=== PATIENT | male | born 1965 | race Caucasian/White ===

== ENCOUNTER 2018-08-13 21:07 | Emergency (ER) | payer OTHER ==
[2018-08-13] MEDS ORDERED: Albuterol/Ipratropium 3.0-0.5 MG/3 ML Neb Soln NEB ONE (21:23)
[2018-08-13] MEDS ORDERED: methylPREDNISolone Sodium Succinate 125 MG/2 ML SDV IM ONE (21:23)
--- NOTE | 2018-08-13 21:37 | EDM.PDOC ---
<Tisha Huff - Last Filed: 08/14/18 10:20> ED HPI GENERAL MEDICAL PROBLEM - General Chief Complaint: Respiratory Problem Stated Complaint: PT HAS DIFFICULTY BREATHING Time Seen by Provider: 08/13/18 21:14 Source of Information: Reports: Patient History Limitations: Reports: No Limitations - History of Present Illness INITIAL COMMENTS - FREE TEXT/NARRATIVE: HISTORY AND PHYSICAL: History of present illness: Patient is a 52-year-old man who presents for shortness of breath that began this morning. When he describes his shortness of breath he states he feels like he cant take a deep breath in. He also reports one emesis episode due to coughing fit but has not vomited since. Reports that nothing makes his shortness of breath better or worse. Reports mild cough with no production. Patient has had asthma since he was [id number] but has not had a rescue inhaler at home for several months since he does not often go in to see his primary care provider. He does not smoke. Patient denies any other symptoms or concerns. Patient denies fever, chest pain, or shortness of breath. Denies headache, neck stiff ness, change in vision, syncope, or near syncope. Denies abdominal pain, diarrhea, constipation, or dysuria. Has not noted any blood in urine or stool. Patient has been eating and drinking appropriately. Review of systems: As per history of present illness and below otherwise all systems reviewed and negative. Past medical history: As per history of present illness and as reviewed below otherwise noncontributory. Surgical history: As per history of present illness and as reviewed below otherwise noncontributory. Social history: See social history for further information Family history: As per history of present illness and as reviewed below otherwise noncontributory. Physical exam: General: Patient is alert, oriented, and in no acute distress. Patient sitting comfortably on exam table. HEENT: Atraumatic, normocephalic, pupils equal and reactive bilaterally, negative for conjunctival pallor or scleral icterus, mucous membranes moist, TMs normal bilaterally, throat clear, neck supple, nontender, trachea midline. No drooling or trismus noted. No meningeal signs. No hot potato voice noted. Lungs: Moderate wheezing throughout bilaterally, chest nontender. Heart: S1S2, regular rate and rhythm without overt murmur Abdomen: Soft, nondistended, nontender. Negative for masses or hepatosplenomegaly. Negative for costovertebral tenderness. Pelvis: Stable nontender. Genitourinary: Deferred. Rectal: Deferred. Skin: Intact, warm, dry. No lesions or rashes noted. Extremities: Atraumatic, negative for cords or calf pain. Neurovascular unremarkable. Neuro: Awake, alert, oriented. Cranial nerves II through XII unremarkable. Cerebellum unremarkable. Motor and sensory unremarkable throughout. Exam nonfocal. Notes: Dr. Soto verbally involved in patient care. Lung sounds clear throughout after DuoNeb. Discussed the importance of following up with his primary care provider. Voices understanding and is agreeable to plan of care. Denies any further questions or concerns at this time. Diagnostics: EKG, troponin, CBC, CMP, UA, CXR Therapeutics: Duo neb Solu-Medrol Levaquin Prescription: Levaquin Albuterol Hfa Albuterol neb Medrol Impression: Left upper lobe pneumonia Plan: 1. Alternate Tylenol and ibuprofen as needed for pain and discomfort. Take medications as prescribed. 2. Follow up with primary care provider as discussed. Return to ER if needed as discussed. Definitive disposition and diagnosis as appropriate pending reevaluation and review of above. - Related Data Allergies Allergy/AdvReac Type Severity Reaction Status Date / Time No Known Allergies Allergy Verified 08/13/18 21:41 Home Meds: Home Meds . [No Known Home Meds] 12/23/14 [History] Past Medical History - Past Surgical History Other Musculoskeletal Surgeries/Procedures:: right elbow surgery and right hand surgery ED ROS GENERAL - Review of Systems Review Of Systems: ROS reveals no pertinent complaints other than HPI. ED EXAM, GENERAL - Physical Exam Exam: See Below (see dictation) Course - Vital Signs Last Recorded V/S: Last Vital Signs Temp 36.2 C 08/13/18 23:25 Pulse 79 08/13/18 23:25 Resp 18 08/13/18 23:25 BP 100/60 08/13/18 23:25 Pulse Ox 97 08/13/18 23:25 - Orders/Labs/Meds Orders: Active Orders 24 hr Category Date Time Status EKG Documentation Completion [RC] STAT Care 08/13/18 21:23 Active RT Aerosol Therapy [RC] ASDIRECTED Care 08/13/18 21:23 Active Labs: Laboratory Tests 08/13/18 08/13/18 08/13/18 Range/Units 21:25 21:41 21:41 WBC 26.76 H (4.0-11.0) K/uL RBC 4.76 (4.50-5.90) M/uL Hgb 14.7 (13.0-17.0) g/dL Hct 43.1 (38.0-50.0) % MCV 90.5 (80.0-98.0) fL MCH 30.9 (27.0-32.0) pg MCHC 34.1 (31.0-37.0) g/dL RDW Std Deviation 45.7 (28.0-62.0) fl RDW Coeff of Jacob 14 (11.0-15.0) % Plt Count 226 (150-400) K/uL MPV 10.30 (7.40-12.00) fL Add Manual Diff YES Neutrophils % (Manual) 75 (48.0-80.0) % Band Neutrophils % 5 % Lymphocytes % (Manual) 14 L (16.0-40.0) % Monocytes % (Manual) 6 (0.0-15.0) % Nucleated RBC % 0.0 /100WBC Absolute Seg Neuts 20.1 H (1.4-5.7) Band Neutrophils # 1.3 Lymphocytes # (Manual) 3.7 H (0.6-2.4) Monocytes # (Manual) 1.6 H (0.0-0.8) Nucleated RBCs # 0 K/uL Sodium 139 (136-148) mmol/L Potassium 4.2 (3.5-5.1) mmol/L Chloride 106 (98-107) mmol/L Carbon Dioxide 25.5 (21.0-32.0) mmol/L BUN 21 H (7.0-18.0) mg/dL Creatinine 1.2 (0.8-1.3) mg/dL Est Cr Clr Drug Dosing 68.09 mL/min Estimated GFR (MDRD) > 60.0 ml/min Glucose 112 H (74-106) mg/dL Calcium 9.0 (8.5-10.1) mg/dL Total Bilirubin 0.7 (0.2-1.0) mg/dL AST 17 (15-37) IU/L ALT 20 (14-63) IU/L Alkaline Phosphatase 88 (46-116) U/L Troponin I < 0.050 (0.000-0.056) ng/mL Total Protein 7.3 (6.4-8.2) g/dL Albumin 3.7 (3.4-5.0) g/dL Globulin 3.6 (2.6-4.0) g/dL Albumin/Globulin Ratio 1.0 (0.9-1.6) Urine Color YELLOW Urine Appearance CLEAR Urine pH 6.0 (5.0-8.0) Ur Specific Everton 1.025 (1.001-1.035) Urine Protein NEGATIVE (NEGATIVE) mg/dL Urine Glucose (UA) NEGATIVE (NEGATIVE) mg/dL Urine Ketones NEGATIVE (NEGATIVE) mg/dL Urine Occult Blood NEGATIVE (NEGATIVE) Urine Nitrite NEGATIVE (NEGATIVE) Urine Bilirubin NEGATIVE (NEGATIVE) Urine Urobilinogen 0.2 (<2.0) EU/dL Ur Leukocyte Esterase NEGATIVE (NEGATIVE) Meds: Medications Discontinued Medications Generic Name Dose Route Start Last Admin Trade Name Freq PRN Reason Stop Dose Admin Albuterol/Ipratropium 3 ml 08/13/18 21:23 08/13/18 21:34 Duoneb 3.0-0.5 Mg/3 Ml NEB 08/13/18 21:24 3 ml ONETIME ONE Administration Amoxicillin/Clavulanate Potassium 1 tab 08/13/18 22:46 08/13/18 22:59 Augmentin 875 Mg/125 Mg PO 08/13/18 22:47 Not Given ONETIME ONE Levofloxacin 750 mg 08/13/18 22:48 08/13/18 23:18 Levaquin PO 08/13/18 22:49 750 mg ONETIME ONE Administration Methylprednisolone Sodium Succinate 125 mg 08/13/18 21:23 08/13/18 21:34 Solu-Medrol IM 08/13/18 21:24 125 mg ONETIME ONE Administration Departure - Departure Time of Disposition: 10:20 Disposition: Home, Self-Care 01 Clinical Impression: Left upper lobe pneumonia Qualifiers: Pneumonia type: due to unspecified organism Qualified Code(s): J18.1 - Lobar pneumonia, unspecified organism Clinical Impression: (Ruled Out): Shortness of breath - Discharge Information Instructions: Community-Acquired Pneumonia, Adult, [id number] Referrals: PCP,None [Primary Care Provider] - Forms: ED Department Discharge Additional Instructions: The following information is given to patients seen in the emergency department who are being discharged to home. This information is to outline your options for follow-up care. We provide all patients seen in our emergency department with a follow-up referral. The need for follow-up, as well as the timing and circumstances, are variable depending upon the specifics of your emergency department visit. If you don't have a primary care physician on staff, we will provide you with a referral. We always advise you to contact your personal physician following an emergency department visit to inform them of the circumstance of the visit and for follow-up with them and/or the need for any referrals to a consulting specialist. The emergency department will also refer you to a specialist when appropriate. This referral assures that you have the opportunity for follow-up care with a specialist. All of these measure are taken in an effort to provide you with optimal care, which includes your follow-up. Under all circumstances we always encourage you to contact your private physician who remains a resource for coordinating your care. When calling for follow-up care, please make the office aware that this follow-up is from your recent emergency room visit. If for any reason you are refused follow-up, please contact the [facility] Emergency Department at and asked to speak to the emergency department charge nurse. [facility] Primary Care [address] [place] [id number] [place] [address] 1. Alternate Tylenol and ibuprofen as directed for pain and discomfort. Take medications as prescribed. 2. Follow up with primary care provider as discussed. Return to ED as needed and as discussed. - My Orders Last 24 Hours: My Active Orders 08/13/18 21:23 EKG Documentation Completion [RC] STAT RT Aerosol Therapy [RC] ASDIRECTED - Assessment/Plan Last 24 Hours: My Active Orders 08/13/18 21:23 EKG Documentation Completion [RC] STAT RT Aerosol Therapy [RC] ASDIRECTED <Kenisha Jacome - Last Filed: 08/14/18 12:15> ED HPI GENERAL MEDICAL PROBLEM - History of Present Illness INITIAL COMMENTS - FREE TEXT/NARRATIVE: I have personally seen the patient and agree with the above note. Dr. Soto verbally involved in patient care. Patient agreeable to plan of care as stated above without question or concerns.
[2018-08-13] MEDS ORDERED: Amoxicillin/Clavulanate K 875-125 MG Tab PO ONE (22:46)
--- NOTE | 2018-08-13 22:47 | CR ---
INDICATION: Shortness of breath COMPARISON: None available. FINDINGS: PA and lateral views of the chest were obtained. There is a mild patchy left perihilar infiltrate, seen to be in the left upper lobe on the lateral view, consistent with mild left upper lobe pneumonia. The rest of the chest is clear and there is no sign of a pleural effusion. The heart is normal in size. The mediastinum is normal in appearance. The osseous structures are normal in appearance for the patient`s age. IMPRESSION: Mild patchy left perihilar infiltrate consistent with mild left upper lobe pneumonia. Dictated by Cem Uribe MD @ Aug 13 2018 10:44PM Signed by Dr. Cem Uribe @ Aug 13 2018 10:45PM
[2018-08-13] MEDS ORDERED: Levofloxacin 500 MG Tab PO ONE (22:48)
[2018-08-13 22:50] LABS: CHLORIDE,CL 106 mmol/L (98-107); SODIUM,NA 139 mmol/L (136-148)
[2018-08-14 01:27] VITALS: BP 100/60
== END 2018-08-13 23:25 | disposition home or self-care (01) ==
LOC: MW.ED 21:07
DX: J18.1 Lobar pneumonia, unspecified organism (principal)
CPT/HCPCS: 36415; 71046; 80053; 81003; 84484; 85025; 93005; 94640; 96372; 99285; A9270; J2930; 99284; J7620-GY

== ENCOUNTER 2020-02-25 13:11 | Emergency (ER) | payer OTHER ==
[2020-02-25] MEDS ORDERED: Tetracaine HCl/PF 0.5% 4 ML Bottle EYEBOTH ONE (13:19)
--- NOTE | 2020-02-25 13:22 | EDM.PDOC ---
ED HPI GENERAL MEDICAL PROBLEM - General Chief Complaint: Eye Problems Stated Complaint: LT EYE BLURRY Time Seen by Provider: 02/25/20 13:13 Source of Information: Reports: Patient History Limitations: Reports: No Limitations - History of Present Illness INITIAL COMMENTS - FREE TEXT/NARRATIVE: HISTORY AND PHYSICAL: History of present illness: Patient is a 54-year-old male who presents to the emergency room with complaints of blurred vision to the left eye. He reports he has had intermittent blurred vision that lasts anywhere from a few seconds to a few minutes but typically resolves on its own. This morning he woke up with blurred vision that has yet to resolve. He did call the steward/stewardess deck to set up an appointment but is not able to be seen till next week. They did request that he come to the emergency room for evaluation. He reports his last visual exam was approximately 7+ years ago. Does not wear contact lenses or corrective glasses although does use "c heaters to read". Denies any "floaters" or flashes of light. Denies any vision loss or visual field loss. He denies any headache, recent injury/traumas. Patient denies any fever, chills, headache, change in vision, syncope or near syncope. Denies any chest pain, back pain, shortness of breath or cough. Denies any abdominal pain, nausea, vomiting, diarrhea, constipation or dysuria. Has not noted any blood in urine or stool. Patient has been eating and drinking appropriately. Review of systems: As per history of present illness and below otherwise all systems reviewed and negative. Past medical history: As per history of present illness and as reviewed below otherwise noncontributory. Surgical history: As per history of present illness and as reviewed below otherwise noncontributory. Social history: See social history for further information Family history: As per history of present illness and as reviewed below otherwise noncontributory. Physical exam: General: Well developed and well nourished 54 year old male. Alert and orientated x 3. Nontoxic in appearance and in no acute distress. Vital signs are stable and have been reviewed by me. Nursing notes were reviewed. HEENT: Atraumatic, normocephalic, pupils equal and reactive bilaterally, negative for conjunctival pallor or scleral icterus, no pain with ocular movement, visual montez intact, no nystagmus. His mucous membranes moist, TMs normal bilaterally, throat clear, neck supple, nontender, trachea midline. No drooling or trismus noted. No meningeal signs. No hot potato voice noted. Lungs: Clear to auscultation, breath sounds equal bilaterally, chest nontender. Normal work of breathing, no accessory muscles used. Heart: S1S2, regular rate and rhythm without overt murmur Abdomen: Soft, nondistended, nontender. Negative for masses or hepatosplenomegaly. Negative for costovertebral tenderness. Skin: Intact, warm, dry. No lesions or rashes noted. Hematologic: No petechiae or purpra. Mucosa appropriate color and normal nail bed color and refill. Extremities: Atraumatic, moves all extremities per self without difficulty or deficits, negative for cords or calf pain. Neurovascular unremarkable. Neuro: Awake, alert, oriented. Cranial nerves II through XII unremarkable. Cerebellum unremarkable. Motor and sensory unremarkable throughout. Exam nonfocal. Psychiatric: Mood and affect are appropriate. Normal thought process. Answering questions appropriately. Notes: Visual acuity is noted, this was done without his "cheaters". He states its hard to read without them. [facility] eye exam shows no abrasions or FB. Dr Ashton assisted with bedside u/s. Ultrasound of the left eye shows no evidence of retinal detachment or floaters. Attempted to reach ophthalmology on-call, unavailable. Patient does have an appointment on Friday to follow-up. He reports he was informed to use artificial tears routinely over the weekend, but has failed to pick these up yet. Will give him some artificial tears here. I have talked with the patient about today's findings, in addition to providing specific details for plan of care. Reassessment at the time of disposition demonstrates that the patient is in no acute distress. The patient is stable for discharge, counseling was provided and we discussed in great detail signs and symptoms that would prompt them to return to the Emergency Department. Medication, follow up and supportive care measures were reviewed and discussed. Voices understanding and is agreeable to plan of care. Denies any further questions or concerns at this time. Diagnostics: Visual acuity Therapeutics: Tetracaine, Artificial tears Prescription: None Impression: Blurred Vision, Left Plan: 1. Today your ER evaluation shows no acute or concerning findings. But you do need to see the LEAD ELECTRICAL ENGINEER for further evaluation/testing PORSHA. 2. Use the artificial tears as directed. 3. If your symptoms should worsen, new symptoms develop or any of the signs and symptoms we discussed should arise please return to the emergency room or call 911 (if needed). Definitive disposition and diagnosis as appropriate pending reevaluation and review of above. - Related Data Allergies Allergy/AdvReac Type Severity Reaction Status Date / Time No Known Allergies Allergy Verified 02/25/20 13:26 Home Meds: Home Meds . [No Known Home Meds] 12/23/14 [History] Past Medical History HEENT History: Reports: None Cardiovascular History: Reports: None Respiratory History: Reports: Asthma Gastrointestinal History: Reports: None Genitourinary History: Reports: None Neurological History: Reports: None Psychiatric History: Reports: None Endocrine/Metabolic History: Reports: None Hematologic History: Reports: None Immunologic History: Reports: None Oncologic (Cancer) History: Reports: None Dermatologic History: Reports: None - Infectious Disease History Infectious Disease History: Reports: None - Past Surgical History Other Musculoskeletal Surgeries/Procedures:: right elbow surgery and right hand surgery ED ROS GENERAL - Review of Systems Review Of Systems: Comprehensive ROS is negative, except as noted in HPI. ED EXAM GENERAL W FULL EYE - Physical Exam Exam: See Below (See dictation) Course - Vital Signs Last Recorded V/S: Last Vital Signs Temp 97 F 02/25/20 13:27 Pulse 62 02/25/20 13:27 Resp 16 02/25/20 13:27 BP 124/88 02/25/20 13:27 Pulse Ox 97 02/25/20 13:27 - Orders/Labs/Meds Orders: Active Orders 24 hr Category Date Time Status Visual Acuity [Vision Test] [RC] ASDIRECTED Care 02/25/20 13:19 Active Carboxymethylcellulose Sodium [Refresh Plus 0.5%] Med 02/25/20 14:15 Ordered 1 each EYELF ASDIRECTED PRN Medication Orders Artificial Tears (Refresh Plus 0.5%) 1 each EYELF ASDIRECTED PRN PRN Reason: Dry Eyes Meds: Medications Generic Name Dose Route Start Last Admin Trade Name Freq PRN Reason Stop Dose Admin Artificial Tears 1 each 02/25/20 14:15 Refresh Plus 0.5% EYELF ASDIRECTED PRN Dry Eyes Discontinued Medications Generic Name Dose Route Start Last Admin Trade Name Freq PRN Reason Stop Dose Admin Tetracaine HCl 1 ml 02/25/20 13:19 02/25/20 13:38 Tetracaine 0.5% Steri-Unit Deanna EYEBOTH 02/25/20 13:20 1 dose ASDIRECTED ONE Administration Departure - Departure Time of Disposition: 14:16 Disposition: Home, Self-Care 01 Clinical Impression: Blurred vision, left eye - Discharge Information Instructions: Blurred Vision, Adult Referrals: PCP,None [Primary Care Provider] - Forms: ED Department Discharge Additional Instructions: The following information is given to patients seen in the emergency department who are being discharged to home. This information is to outline your options for follow-up care. We provide all patients seen in our emergency department with a follow-up referral. The need for follow-up, as well as the timing and circumstances, are variable depending upon the specifics of your emergency department visit. If you don't have a primary care physician on staff, we will provide you with a referral. We always advise you to contact your personal physician following an emergency department visit to inform them of the circumstance of the visit and for follow-up with them and/or the need for any referrals to a consulting specialist. The emergency department will also refer you to a specialist when appropriate. This referral assures that you have the opportunity for follow-up care with a specialist. All of these measure are taken in an effort to provide you with optimal care, which includes your follow-up. Under all circumstances we always encourage you to contact your private physician who remains a resource for coordinating your care. When calling for follow-up care, please make the office aware that this follow-up is from your r ecent emergency room visit. If for any reason you are refused follow-up, please contact the [facility] Emergency Department at and asked to speak to the emergency department charge nurse. [facility] Primary [facility] [address] [place] [id number] [facility] [address] [place] [id number] Thank you for choosing the [facility] emergency department in [place] for your medical needs today. It was a pleasure caring for you. Today you were seen in the emergency department for blurred vision of left eye. 1. Today your ER evaluation shows no acute or concerning findings. But you do need to see the [facility]INEER for further evaluation/testing PORSHA. 2. Use the artificial tears as directed. 3. If your symptoms should worsen, new symptoms develop or any of the signs and symptoms we discussed should arise please return to the emergency room or call 911 (if needed). Sepsis Event Note (ED) - Focused Exam Vital Signs: Vital Signs Temp Pulse Resp BP Pulse Ox 02/25/20 13:27 97 F 62 16 124/88 97 - My Orders Last 24 Hours: My Active Orders 02/25/20 13:19 Visual Acuity [Vision Test] [RC] ASDIRECTED 02/25/20 14:15 Carboxymethylcellulose Sodium [Refresh Plus 0.5%] 1 each EYELF ASDIRECTED PRN - Assessment/Plan Last 24 Hours: My Active Orders 02/25/20 13:19 Visual Acuity [Vision Test] [RC] ASDIRECTED 02/25/20 14:15 Carboxymethylcellulose Sodium [Refresh Plus 0.5%] 1 each EYELF ASDIRECTED PRN
[2020-02-25] MEDS ORDERED: Carboxymethylcellulose Sodium 0.5% Ophth Soln 0.4 ML UD Box of 30 EYELF PRN ×2 (14:15→14:25)
[2020-02-25 14:29] VITALS: BP 115/80; PULSE 60
== END 2020-02-25 14:32 | disposition home or self-care (01) ==
LOC: MW.ED 13:11
DX: H53.8 Other visual disturbances (principal); J45.909 Unspecified asthma, uncomplicated
CPT/HCPCS: 99282; 99283